=== PATIENT | male | born 1980 | race Caucasian/White ===

== ENCOUNTER 2018-12-15 05:48 | Day surgery (SDC) | payer OTHER, SELFPAY ==
[2018-12-15] VITALS (9 sets, daily range): BP systolic 129–156; BP diastolic 94–117; PULSE 62–109; RESP 16–18; TEMP 36.3–36.9; O2SAT 95–100; BMI 32.8
[2018-12-15 06:25] LABS: Anion Gap 10 (5-15); BUN 13 mg/dL (7-18); BUN/Creat Ratio 12.1 RATIO (10-20); Calcium,Total 9.1 mg/dL (8.5-10.1); Chloride 109 mmol/L (98-107); Creatinine, Serum 1.07 mg/dL (0.70-1.30); EST Glomerular Filtration Rate 82 mL/min (>60); Est Glom Filt Rate - Afr Amer 99 mL/min (>60); Estimated Creatinine Clearance 90.56 ml/min; Glucose 113 mg/dL (74-106); Potassium 4.1 mmol/L (3.5-5.1); Sodium Level 142 mmol/L (136-145)
--- NOTE | 2018-12-15 07:30 | CHO_PTH ---
PATIENT: RADHA PARIKH LOC: [facility] [place] U#:[id number] AGE/SX: 38/M ROOM: RE12/15/[address]: Dr. Ritesh Cantor MD : 1980 BED: DIS: 12/15/2018 SPEC #: [id number] RECD: 12/15/18 13:59 STATUS: MAHIN JUDI #: [id number] NATALYA: 12/15/18 07:[address]: Ritesh Cantor DEPT: SURGICAL PATHOLOGY RECD BY: Dillan Bustamante ENTERED: 12/15/18 14:39 SP TYPE: CHOLESTEAT OTHR DR: Susi Primary Care Phys Tissues: A - Soft tissues, NOS B - Soft tissues, NOS Procedures: Decalcification bone/plaque Surgery Specimen Level III HEADER OPERATION: Tympanomastoidectomy with ossicular reconstruction PRE-OP DIAGNOSIS: Cholesteatoma of attic left ear; dysfunction of eustachian tube bilateral, conductive hearing loss bilateral TISSUE SUBMITTED: A - Malleus left ear, B - Cholesteatoma of attic left ear MICROSCOPIC DIAGNOSIS A. Malleus left ear: Pieces of bone with reactive changes. B. Cholesteatoma of attic left ear, biopsy: Consistent with cholesteatoma. Chronic inflammation. ALVARO:viridiana 12/19/18 MICROSCOPIC DESCRIPTION Slides are reviewed. GROSS DESCRIPTION A - Received in fixative is one container labeled with the patient's name and designated malleus of left ear. The specimen consists of two fragments of bone that in aggregate measure 0.6 x 0.5 x 0.2 cm. The specimen is totally submitted in one cassette after decalcification. B - Received in fixative is one container labeled with the patient's name and designated cholesteatoma of attic left ear. The specimen consists of two irregular fragments of farley soft tissue that in aggregate measure 0.6 x 0.5 x 0.1 cm. The specimen is totally submitted in one cassette. / ALVARO:viridiana 12/15/18 TC:5 CPT: 19765 x2, 97494
[2018-12-15] MEDS: Bacitracin 500 UNITS/GM PACKET (10:42)
--- NOTE | 2018-12-15 11:12 | PCM.OPRPT ---
Problem List (1) Cholesteatoma of attic of left ear Status: Chronic (2) Chronic mastoiditis of left side Status: Chronic (3) Conductive hearing loss in left ear Status: Chronic Report of Operation Date of Procedure: 12/15/18 Pre-Operative Diagnosis: Cholesteatoma attic left ear, chronic mastoiditis, conductive hearing loss Post-Operative Diagnosis: Same Surgery/Procedure Performed:: Left canal wall up tympanomastoidectomy with ossicular chain reconstruction with Gomez Variac PORP prosthesis, cartilage graft harvest, facial nerve monitoring Description of Surgical Findings:: Alonso is a 30-year-old male who presented for evaluation of bleeding drainage from the left ear. Examination showed granulation of the attic and after treatment this was found to harbor a large cholesteatoma which was confirmed on CT scan of the temporal bone as well as chronic mastoiditis in the left side. Audiometric evaluation showed a conductive hearing loss consistent with these findings and the above procedure was advised. The risks, alternatives, potential benefits, and complications were discussed at length and any questions answered to the patient and/or caregiver's satisfaction. Witnessed informed consent was obtained in the office, and the patient and/or caregiver was agreeable to proceed. Procedure went as follows: The patient was identified in the preoperative holding brought to the operating room and was placed under general anesthesia and intubated. The operative ear had been site marked preoperatively in accordance with the office notes patient exam and history. The patient was then placed under general anesthesia and the left ear prepped and draped in usual sterile fashion. The facial nerve monitoring electrodes were then placed in the confirmed to be operational in accordance with the manufactures directions. The planned postauricular incision site for fascial graft harvest was then injected with 1% lidocaine with 100,000 epinephrine for a total of 6 mL. Through a #6 otic speculum the operative microscope was brought into the field and the external auditory canal and tympanic membrane visualized. The lateral canal wall was then injected with 1% lidocaine with 100,000 epinephrine for a total of 0.5 cc. Using a sickle knife the edge of the perforation was then sharply resected and withdrawn from the ear canal with a cup forceps. Using a round knife a vascular strip incision was then created and the skin flap developed toward the annulus. The middle ear cleft was then entered with a curved pick and the annulus elevated with the annulus elevator. This was then draped anteriorly to allow visualization of the middle ear cleft which is involved with granulation tissue over the ossicular chain with a large cholesteatoma extending up into the attic. Epinephrine soaked cotton balls and placed for hemostasis and attention turned to the fascial graft harvest. A 5 cm incision was then created a 15 blade scalpel posterior to the auricle at the previous injection site. The skin and subcutaneous tissues were then dissected and the posterior auricular muscle sharply transected. The subfascial plane was then widely developed any 2.5 x 2.5 centimeter portion of loose areolar tissue then harvested and set aside on a Que block for reconstruction of the tympanic membrane. The wound edges were then cauterized with electrocautery for hemostasis. Using a Tejinderpert elevator the periosteum was then elevated superiorly and posteriorly and self retaining clamps were then placed. Anteriorly the periosteum was then developed along the external auditory canal wall and the vascular strip then everted into the field and placed under the self-retaining retractor to hold this out of the way. A mastoidectomy was then carried out in standard fashion beginning with a #6 cutting bur followed by #4 yesy. There is noted extensive granulation tissue filling the attic and cholesteatoma. Dissection was then carried out along the facial nerve and the facial recess was then opened. There is noted to be extensive involvement of the head of the incus and malleus and given this these were then elected to be sacrificed for control of the cholesteatoma. The incudostapedial joint was then sharply severed and the tensor tympani muscle sharply transected this allowed for the resection of the ossicles which were then sent for pathologic specimen. Using a stapes curet the scutum was then removed to allow visualization of the attic and the cholesteatoma was then resected sharply from this space. The granulation tissue was then dissected free of the chorda tympani which was able to be preserved. Additional cannulation tissue was then dissected off the stapes superstructure. A Gomez titanium prosthesis was then fashioned 3.25 mm in length to reconstruct the ossicular chain and a piece of tragal cartilage graft was then harvested using a 15 blade scalpel through a separate stab incision which was then closed with an interrupted 5-0 Monocryl suture. Gomez titanium prosthesis was then placed over the stapes superstructure and the middle ear cleft filled with Gelfoam material. The previously harvested cartilage patsy graft was then placed overlying the titanium prosthesis and the previously harvested loose areolar tissue graft was then placed in underlay fashion to reconstruct the tympanic membrane. The tympanic membrane remnant which have been draped anteriorly was then redraped over this reconstruction completing the correction of the tympanic membrane perforation with secure chain reconstruction. Attention was then closed to the postauricular incision which was then irrigated free of bone dust and closed deeply with interrupted 3-0 Vicryl sutures followed by running 5-0 Monocryl to the skin. The vascular strip was then returned to its [place] position and additional Gelfoam material applied laterally to hold the composite tissue graft in place. Bacitracin ointment was then applied to secure the material and the patient then cleaned of prep solution and the facial nerve monitoring electrodes removed. The patient was then returned to anesthesia, revived and extubated without complication having tolerated the procedure well. Type of Anesthesia:: General Anesthesiologist: Salomón Jarquin Special Medications: none Specimen's removed: Cholesteatoma left middle ear and attic Drains: none Estimated Blood Loss (mL): 25 mL Fluids Replaced: 900 mL Grafts/Implants Used: GOMEZ PORP titanium prosthesis - Complications none - Admit VTE Documentation VTE Present on Admission: No VTE Mechan Device Prophylaxis: SCD's VTE Pharm Prophylaxis ordered?: No
--- NOTE | 2018-12-15 11:26 | PCM.DC ---
- Discharge Diagnoses Current Active Problems: Current Active and Chronic Problems Cholesteatoma of attic of left ear (Chronic) Chronic mastoiditis of left side (Chronic) Conductive hearing loss in left ear (Chronic) You will use the following diet at home:: Regular Discharge Activity: Return to Normal Activity Weight Bearing Status: Weight bearing as tolerated Additional Activity Instructions:: keep ear and incision dry Call your doctor if your incision/area has: Sudden Increased Bleeding, Swelling at the incision site Call your doctor if you observe: Fever of 101 or Higher, Uncontrolled pain Allergies/Adverse Reactions: Allergies No Known Allergies Allergy (Verified 12/13/18 09:32) Medications to take at Discharge NK 12/13/18 Primary Care Physician: Care Physician,No Primary [Primary Care Provider] - Test Results: Test results from this visit will be discussed in further detail at your follow-up appointment, if applicable. Please Follow Up With: Ritesh Cantor MD When: 5 days
--- NOTE | 2018-12-15 11:29 | DCINST_ITS ---
- Discharge Diagnoses Current Active Problems: Current Active and Chronic Problems Cholesteatoma of attic of left ear (Chronic) Chronic mastoiditis of left side (Chronic) Conductive hearing loss in left ear (Chronic) You will use the following diet at home:: Regular Discharge Activity: Return to Normal Activity Weight Bearing Status: Weight bearing as tolerated Additional Activity Instructions:: keep ear and incision dry Call your doctor if your incision/area has: Sudden Increased Bleeding, Swelling at the incision site Call your doctor if you observe: Fever of 101 or Higher, Uncontrolled pain Allergies/Adverse Reactions: Allergies No Known Allergies Allergy (Verified 12/13/18 09:32) Medications to take at Discharge NK 12/13/18 Primary Care Physician: Care Physician,No Primary [Primary Care Provider] - Test Results: Test results from this visit will be discussed in further detail at your follow- up appointment, if applicable. Please Follow Up With: Ritesh Cantor MD When: 5 days
[2018-12-15] MEDS: Acetaminophen 500 MG Tablet PO (13:50)
[2018-12-15] MEDS: Ibuprofen 400 MG Tablet PO (13:50)
== END 2018-12-15 14:46 | disposition home or self-care (01) ==
LOC: SDC 05:52 → AC 05:52
PROVIDERS: Referring Provider Otolaryngology; Visit Provider Otolaryngology
PROC: (CPT 69641; principal; 2018-12-15 07:00)
DX: H71.02 Cholesteatoma of attic, left ear (principal); H69.93 Unspecified Eustachian tube disorder, bilateral; H90.0 Conductive hearing loss, bilateral
CPT/HCPCS: 21235; 69637; 69644; 36415; 80048; 88304; 88311; J7120; J2405

== ENCOUNTER 2019-04-20 07:40 | Day surgery (SDC) | payer OTHER, SELFPAY ==
[2018-12-15 06:16] VITALS: BMI 32.8
[2019-04-20 08:19] VITALS: BP 133/90; PULSE 76; RESP 16; TEMP 36.4; O2SAT 97; BMI 32.5
[2019-04-20] MEDS: Epinephrine (1 mg/ml) 1 MG/ML VIAL (11:00)
[2019-04-20] MEDS: Oxymetazoline 0.05% 1 SPRAY SPRAY.BTL 15 SPRAY (11:35)
[2019-04-20] MEDS: Bacitracin 500 UNITS/GM PACKET (11:45)
--- NOTE | 2019-04-20 11:50 | PCM.OPRPT ---
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 Examination showed recurrence of his retraction into the attic on the left ear with cholesteatoma after a canal wall up tympanomastoidectomy and developing retraction on the right side. He continued to have a significant conductive hearing loss that it failed to be adequately resolved with his prior desiccation reconstruction. The above procedure was offered in hopes of relief of these complaints as well as evaluation for residual disease and he is agreeable to proceed. The risks, alternatives, potential complications, and benefits were discussed at length and any questions answered to the patient and/or caregiver's satisfaction. Witnessed informed consent was obtained in the office, and the patient and/or caregiver was agreeable to proceed. Procedure went as follows: The patient was identified in the preoperative holding brought to the operating room and was placed under general anesthesia and intubated. The operative ear had been site marked preoperatively in accordance with the office notes patient exam and history. The patient was then placed under general anesthesia and the left ear prepped and draped in usual sterile fashion. The facial nerve monitoring electrodes were then placed in the confirmed to be operational in accordance with the manufactures directions. The planned postauricular incision site for fascial graft harvest was then injected with 1% lidocaine with 100,000 epinephrine for a total of 2.5 mL. Through a #6 otic speculum the operative microscope was brought into the field and the external auditory canal and tympanic membrane visualized. The lateral canal wall was then injected with 1% lidocaine with 100,000 epinephrine for a total of 0.5 cc. There is noted to be deep retraction of the reconstructed tympanic membrane into the attic with accumulation of squamous debris. This was removed and attempts to shankar the retracted tympanic membrane were unsuccessful. Using a round knife a vascular strip incision was then created and the skin flap developed toward the annulus. The middle ear cleft was then entered with a curved pick and the annulus elevated with the annulus elevator. This was then draped anteriorly to allow visualization of the middle ear cleft which is noted to be healthy in appearance. The retracted area of the tympanic membrane was then freed from its area of adhesions to the middle ear and attic mastoid space and removed and sent in surgical specimen. Additionally there is no to be significant scar and adhesions surrounding the ossicular chain reconstruction prosthesis and occluding the ventilatory path between the anterior and posterior middle ear spaces. This was sharply ligated and removed with care to preserve the placement of the vesicular chain reconstruction prosthesis which was neatly placed over the stapes capitulum as well as to preserve the facial nerve which was found superior medially in its normal anatomic position. Upon completion, epinephrine soaked cotton balls and placed for hemostasis and attention turned to the fascial graft harvest. A 3 cm incision was then created a 15 blade scalpel posterior to the auricle at the previous injection site. The skin and subcutaneous tissues were then dissected and the posterior auricular muscle sharply transected. The subfascial plane was then widely developed any 2.5 x 2 centimeter portion of loose areolar tissue then harvested and set aside on a Que block for reconstruction of the tympanic membrane. The wound edges were then cauterized with electrocautery for hemostasis and closed deeply with interrupted 3-0 Vicryl sutures followed by running 5-0 Monocryl to the skin. This completed the graft harvest portion of the procedure. Attention was then turned to reconstruction of the tympanic membrane. The operative microscope was replaced and through an otic speculum the middle ear cleft filled with Gelfoam packing material after removal of the epinephrine soaked cotton balls. The previously harvested graft tissue was then placed in an underlay fashion ensuring that it completely covered the tympanic membrane perforation. The vascular strip was then returned to its [place] position and additional Gelfoam material applied laterally to hold the composite tissue graft in place. Bacitracin ointment was then applied to secure the material and the patient then cleaned of prep solution and the facial nerve monitoring electrodes removed. . The right side the external auditory canal and tympanic membrane visualized. This is noted to be retracted superiorly and opaque. A myringotomy was then placed in the anteroinferior portion the tympanic membrane and Silastic T tube tympanostomy tube placed followed by oxymetazoline drops. The patient was then returned to anesthesia, revived and extubated without complication having tolerated the procedure well. Type of Anesthesia:: General Anesthesiologist: Salomón Jarquin Special Medications: none Specimen's removed: cholesteatoma left middle ear and attic Drains: none Estimated Blood Loss (mL): 0 mL Fluids Replaced: 1200 mL Grafts/Implants Used: fascia graft - Complications none - Admit VTE Documentation VTE Present on Admission: No VTE Mechan Device Prophylaxis: SCD's VTE Pharm Prophylaxis ordered?: No
[2019-04-20 12:01] VITALS: BP 127/82; BP 133/90; PULSE 84; RESP 14; TEMP 36.1; O2SAT 93
--- NOTE | 2019-04-20 12:03 | DCINST_ITS ---
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 (Chronic) You will use the following diet at home:: Regular Discharge Activity: Return to Normal Activity Call your doctor if your incision/area has: Continuous Slow Oozing, Foul Smelling Discharge Call your doctor if you observe: Fever of 101 or Higher, Uncontrolled pain Cleanse incision/area with: Do not get Incision Wet Allergies/Adverse Reactions: Allergies No Known Allergies Allergy (Verified 04/16/19 14:58) Medications to take at Discharge Fluticasone 0.05% [Flonase Nasal [place]] 2 spray NASAL DAILY PRN 04/16/19 Primary Care Physician: Care Physician,No Primary [Primary Care Provider] - Test Results: Test results from this visit will be discussed in further detail at your follow- up appointment, if applicable. Please Follow Up With: Ritesh Cantor MD When: 1 week
[2019-04-20 12:18] VITALS: BP 128/85; BP 133/90; PULSE 83; RESP 16; O2SAT 93
[2019-04-20 12:31] VITALS: BP 130/92; BP 133/90; PULSE 82; RESP 16; O2SAT 93
[2019-04-20 12:32] VITALS: BP 133/101; BP 133/90; PULSE 76; RESP 16; TEMP 36.2; O2SAT 96
[2019-04-20] MEDS: Ibuprofen 200 MG Tablet PO (13:01)
[2019-04-20] MEDS: Acetaminophen 325 MG Tablet 650 MG PO (13:02)
[2019-04-20 13:06] VITALS: BP 133/90; BP 138/94; PULSE 77; RESP 16; TEMP 36.3; O2SAT 96
== END 2019-04-20 13:09 | disposition home or self-care (01) ==
LOC: SDC 07:41 → AC 07:42
PROVIDERS: Referring Provider Otolaryngology; Visit Provider Otolaryngology
PROC: (CPT 69631; principal; 2019-04-20 09:00)
DX: H71.02 Cholesteatoma of attic, left ear (principal); H73.823 Atrophic nonflaccid tympanic membrane, bilateral; H90.2 Conductive hearing loss, unspecified; H93.12 Tinnitus, left ear
CPT/HCPCS: 00120; 69631; J7120; A4216; J2405